=== PATIENT | male | born 1980 | race Caucasian/White ===

== ENCOUNTER 2023-11-25 12:51 | Day surgery (SDC) | payer OTHER ==
[~2023-11-25] VITALS: Ht 180.3 cm; Wt 80.0 kg
[~2023-11-25 12:51] MED LIST: Lactated Ringer's 1,000 ML IV ONE
[2023-11-25] MEDS ORDERED: CeFAZolin Sodium 2,000 MG VIAL ONE (13:43)
[2023-11-25] MEDS ORDERED: propofoL 20 ML IV ONE (13:59)
[2023-11-25] MEDS ORDERED: FentaNYL Citrate 50 MCG/ML 2 ML Injection ONE (13:59)
[2023-11-25] MEDS ORDERED: Lactated Ringer's 1,000 ML IV ONE (14:01)
[2023-11-25] MEDS ORDERED: EPINEPhrine HCl 1 MG/ML 1ML Amp XX ONE (14:32)
[2023-11-25] MEDS ORDERED: Ropivacaine 0.5% HCL/PF 5 MG/ML 30ML Vial ONE (14:37)
[2023-11-25] MEDS ORDERED: Ketorolac Tromethamine 30mg Vial ONE (14:38)
[2023-11-25] MEDS ORDERED: Dexamethasone Sod Phos 10 MG/ML 1ML VIAL ONE (14:38)
[2023-11-25] MEDS ORDERED: Ondansetron HCl 2 MG / ML 2ML Vial ONE (14:38)
--- NOTE | 2023-11-25 14:59 | NUR ---
11/25/23 1459 Jenelle Varghese 0.15ML EPI MIXED WITH 30ML 0.5% ROPIVACAINE 30ML, 1:200,000
--- NOTE | 2023-11-25 15:05 | NUR ---
11/25/23 1505 Jennifer Chang PT. RAISED UP HIS HEAD & WOKE UP ON HIS OWN 1502. PT. DENIES ANY PAIN. PT. STATES "JUST GROGGY."
[2023-11-25 15:22] VITALS: BP 103/62
== END 2023-11-25 16:24 | disposition home or self-care (01) ==
LOC: ORSCSDS 12:51
PROVIDERS: Podiatrist Foot & Ankle Surgery
PROC: 0JBQ0ZZ Excision of Right Foot Subcutaneous Tissue and Fascia, Open Approach (ICD-10-PCS; principal; 2023-11-25 14:15)
DX: J45.909 Unspecified asthma, uncomplicated (principal); W45.8XXA Other foreign body or object entering through skin, initial encounter
CPT/HCPCS: J0171; J0690; J1100; J1885; J2405; J2704; J2795; J3010; J7120

== ENCOUNTER → 2024-08-16 | Outpatient (CLI) | payer OTHER | END | disposition home or self-care (01) | LOC: LAB SHORT 07:51 → PLD 07:51 → LAB 07:51 | DX: L20.0 Besnier's prurigo (principal); C44.519 Basal cell carcinoma of skin of other part of trunk | CPT/HCPCS: 88304; 88305 ==